=== PATIENT | male | born 1945 | race Hispanic/Latino ===

== ENCOUNTER 2018-07-12 13:41 | Emergency (ER) | payer MEDICARE ==
[2018-07-12] MEDS ORDERED: ONDANSETRON HCL 4 MG/2 ML VIAL ONE (14:46)
[2018-07-12] MEDS ORDERED: MORPHINE SULFATE 5 MG/ML VIAL ONE (14:47)
[2018-07-12 15:52] LABS: BASOPHILS % (AUTO) 0.8 % (0.0-5.0); EOSINOPHILS % (AUTO) 1.2 % (0.0-8.0); HEMATOCRIT 40.7 % (42-54); LYMPHOCYTES % (AUTO) 19.8 % (21.0-51.0); MEAN CORPUSCULAR HEMOGLOBIN 31.3 pg (27.0-33.0); MEAN CORPUSCULAR HGB CONC 34.4 g/dL (32.0-36.0); MONOCYTES % (AUTO) 6.6 % (3.0-13.0); NEUTROPHILS % (AUTO) 71.6 % (40.0-77.0); PLATELET COUNT (AUTO) 247 K/uL (130-400); RED BLOOD CELL COUNT(AUTO) 4.47 MIL/uL (4.50-6.20); RED CELL DISTRIBUTION WIDTH 12.9 % (11.0-15.5); WHITE BLOOD COUNT (AUTO) 5.9 K/uL (4.8-10.8)
[2018-07-12 16:07] LABS: CREATININE 1.1 mg/dL (0.5-1.5); INR 0.96 (0.85-1.15); PARTIAL THROMBOPLASTIN TIME 30.4 SEC (26.3-35.5); POTASSIUM 4.2 mmol/L (3.5-5.1); PROTHROMBIN TIME 10.1 SEC (9.6-11.6)
[2018-07-12 16:20] LABS: ALBUMIN 4.1 g/dL (3.5-5.0); BILIRUBIN,TOTAL 1.1 mg/dL (0.2-1.0); TOTAL PROTEIN, SERUM 7.5 g/dL (6.0-8.3)
== END 2018-07-12 17:00 | disposition home or self-care (01) ==
LOC: EDH 13:41
DX: S82.841A Displaced bimalleolar fracture of right lower leg, initial encounter for closed fracture (principal); Z88.0 Allergy status to penicillin; W18.39XA Other fall on same level, initial encounter; Y93.01 Activity, walking, marching and hiking; Y92.098 Other place in other non-institutional residence as the place of occurrence of the external cause; Y99.8 Other external cause status
CPT/HCPCS: 36415; 73600; 73610; 80053; 82550; 84484; 85025; 85610; 85730; 93005; 96374; 96375; 99284; J2270; J2405

== ENCOUNTER 2018-07-21 08:37 | Observation (INO) | payer MEDICARE ==
[2018-07-21] VITALS (21 sets, daily range): BP systolic 102–136; BP diastolic 57–92
[~2018-07-21] VITALS: Ht 172.7 cm; Wt 83.0 kg
[2018-07-21 09:12] LABS: EOSINOPHILS % (AUTO) 3.5 % (0.0-8.0); HEMATOCRIT 37.9 % (42-54); LYMPHOCYTES % (AUTO) 27.6 % (21.0-51.0); MEAN CORPUSCULAR HEMOGLOBIN 32.1 pg (27.0-33.0); MEAN CORPUSCULAR VOLUME 91.8 fL (79-99); MONOCYTES % (AUTO) 6.2 % (3.0-13.0); NEUTROPHILS % (AUTO) 61.7 % (40.0-77.0); PLATELET COUNT (AUTO) 265 K/uL (130-400); RED BLOOD CELL COUNT(AUTO) 4.13 MIL/uL (4.50-6.20); RED CELL DISTRIBUTION WIDTH 12.9 % (11.0-15.5); WHITE BLOOD COUNT (AUTO) 3.6 K/uL (4.8-10.8)
[2018-07-21 09:17] LABS: POTASSIUM 4.1 mmol/L (3.5-5.1)
[2018-07-21] MEDS ORDERED: LACTATED RINGERS 1000ML 1,000 ML IV ONE (09:59)
[2018-07-21] MEDS ORDERED: CLINDAMYCIN 900 MG/D5% WATER 50 ML IV ONE (09:59)
[2018-07-21] MEDS ORDERED: HYDROMORPHONE 1 MG/1 ML AMP ONE (11:17)
[2018-07-21] MEDS ORDERED: MAGNESIUM SULFATE 1 GM/2 ML VIAL ONE (11:19)
[2018-07-21] MEDS ORDERED: ONDANSETRON HCL 4 MG/2 ML VIAL ONE (11:51)
[2018-07-21] MEDS ORDERED: LIDOCAINE PF 2% 5ML ABBOJECT ONE (11:51)
[2018-07-21] MEDS ORDERED: PROPOFOL 10 MG/ML 20ML VIAL IV ONE (11:51)
[2018-07-21] MEDS ORDERED: FENTANYL CITRATE PF 50 MCG/1 ML 2ML VIAL ONE (11:52)
[2018-07-21] MEDS ORDERED: CLINDAMYCIN PHOSPHATE 150 MG/ML 6ML VIAL ONE (12:23)
[2018-07-21] MEDS ORDERED: EPHEDRINE SULFATE 50 MG/ML AMPULE ONE (13:50)
[2018-07-21] MEDS ORDERED: HYDROCODONE/ACETAMINOPHEN 5/325 MG TAB PO PRN (14:45)
[2018-07-21] MEDS ORDERED: CALCIUM CARBONATE 500 MG TABLET PO PRN (14:45)
[2018-07-21] MEDS ORDERED: DIPHENHYDRAMINE HCL 25 MG CAPSULE PO PRN (14:45)
[2018-07-21] MEDS ORDERED: LIDOCAINE HCL-MPF 1% 2ML VIAL IVP PRN (14:45)
[2018-07-21] MEDS ORDERED: POTASSIUM CHLORIDE 20MEQ/100ML 100 ML IV PRN (14:45)
[2018-07-21] MEDS ORDERED: PROMETHAZINE HCL 25 MG/ML 1ML AMPULE IM PRN (14:45)
[2018-07-21] MEDS ORDERED: POTASSIUM CHLORIDE 10% ELIXIR 20 MEQ/15 ML UDCUP PO PRN (14:45)
[2018-07-21] MEDS ORDERED: POTASSIUM CHLORIDE 20 MEQ ERTAB PO PRN (14:45)
[2018-07-21] MEDS ORDERED: DiphenhydrAMINE HCL 50 MG/ML VIAL IVP PRN (14:45)
[2018-07-21] MEDS ORDERED: TEMAZEPAM 15 MG CAPSULE PO PRN (14:45)
[2018-07-21] MEDS ORDERED: KETOROLAC TROMETHAMINE 15MG/ML IV PRN (14:45)
--- NOTE | 2018-07-21 16:04 | NUR ---
POST SURGERY RECEIVED FROM PACU VIA HOSPITAL BED IN STABLE CONDITION. HE IS AWAKE, ALERT AND ORIENTED X3. RIGHT LEG IS IN A POSTERIOR SPLINT, DRESSING IS DRY AND INTACT. HE HAS BEEN ORIENTED TO ROOM AND USE OF CALL LIGHT. BED IS IN LOWEST POSITION AND LOCKED. IV IS PATENT INFUSING FLUIDS WITH NO REDNESS OR SWELLING NOTED TO SITE. PATIENT IS DUE TO VOID. POST OP VITAL SIGNS HAVE BEEN INITIATED. WILL CONTINUE TO MONITOR.
[2018-07-21] MEDS: ENOXAPARIN SODIUM 40 MG/0.4 ML SYRINGE SQ SCH (20:55)
[2018-07-21] MEDS: CLINDAMYCIN 900 MG/D5% WATER 50 ML IVPB SCH (20:55)
[2018-07-21] MEDS: FAMOTIDINE 20MG TAB 20 MG TAB PO SCH (20:55)
[2018-07-21] MEDS: SODIUM CHLORIDE 0.9% 1000ML 1,000 ML IV SCH (20:56)
[2018-07-22] MEDS: SODIUM CHLORIDE 0.9% 1000ML 1,000 ML IV SCH ×2 (00:45→10:45)
[2018-07-22 03:07] VITALS: BP 126/62
[2018-07-22] MEDS: HYDROCODONE/ACETAMINOPHEN 5/325 MG TAB PO PRN ×3 (03:14→16:10)
[2018-07-22] MEDS: CLINDAMYCIN 900 MG/D5% WATER 50 ML IVPB SCH (03:57)
[2018-07-22 04:32] LABS: HEMATOCRIT 30.4 % (42-54); MEAN CORPUSCULAR HEMOGLOBIN 31.7 pg (27.0-33.0); MEAN CORPUSCULAR HGB CONC 34.7 g/dL (32.0-36.0); MEAN CORPUSCULAR VOLUME 91.3 fL (79-99); PLATELET COUNT (AUTO) 225 K/uL (130-400); POTASSIUM 3.6 mmol/L (3.5-5.1); RED BLOOD CELL COUNT(AUTO) 3.33 MIL/uL (4.50-6.20); RED CELL DISTRIBUTION WIDTH 12.9 % (11.0-15.5); WHITE BLOOD COUNT (AUTO) 5.1 K/uL (4.8-10.8)
[2018-07-22 07:45] VITALS: BP 109/58
[2018-07-22] MEDS: FAMOTIDINE 20MG TAB 20 MG TAB PO SCH (08:25)
[2018-07-22] MEDS: ENOXAPARIN SODIUM 40 MG/0.4 ML SYRINGE SQ SCH (08:26)
[2018-07-22] MEDS ORDERED: POLYETHYLENE GLYCOL 3350 17 GM POWD.PACK PO SCH (09:00)
[2018-07-22] MEDS ORDERED: TAMSULOSIN HCL 0.4 MG CAP.ER.24H PO SCH (09:00)
[2018-07-22] MEDS ORDERED: HYDR-4457 PO (10:56)
[2018-07-22] MEDS ORDERED: ASPI-1012 PO (10:56)
[2018-07-22 11:19] VITALS: BP 121/63
--- NOTE | 2018-07-22 11:23 | NUR ---
Dr. Alcantar in room, discharge orders given: home with home health. Written RX for norco and asa taken to pt's pharmacy by MD for delivery planned for Tuesday.
[2018-07-22] MEDS ORDERED: PSYLLIUM SEED 1 EACH PACKET PO SCH (12:00)
--- NOTE | 2018-07-22 13:30 | NUR ---
Discharge report called to [facility] Nurse Pantera Maya RN.
--- NOTE | 2018-07-22 14:15 | NUR ---
cm note met with patient and states resides at home alone, independent prior to admission. [facility] dc plan is back to home setting, spoke to dr watkins, orders for Home health call made to [facility] and they have accepted pt. per Bobby naik rn immigration associate [phone]. and also call made to [facility] for walker, referral made and spoke to dave wilde, and informed would loan pt a walker until his gets approved, then request to exchange out walker and return to hospital. Mr wilde in agreement. updated primary nurse dc. Addendum: 07/22/18 at 1418 by IVY SMITH CM Amended: Links added.
--- NOTE | 2018-07-22 17:45 | NUR ---
Discharge instructions completed in the room with pt at 1630. Emphasis on dx, sx, s/s to monitor for, and when to seek emergency care vs dial 911. Post op teaching regarding Dr. Alcantar' orders for NWB status on RLE, up with walker as instructed and as tolerated, keep splint clean, dry, intact, keep elevated when seated or in bed. PT is to call on next business day to schedule an appointment with Dr. Alcantar' office, to be seen on 07/31/18. All questions addressed. As previously noted, pt's rx for norco and asa were already taken to pharmacy by Dr. Alcantar and will be delivered on Tuesday; pt and MD discussed this and agreed it is the best course of action at present as he in unable to pick it up on his own. PIV removed, tip intact. Dressed with sterile 2x2 and band aid after hemostasis. Pt given hospital walker on loan until his personal one is delivered by [employer]. Pt wheeled to front lobby by [facility] staff at present for discharge home via taxi as arranged by pt. Pt in stable condition at time of discharge.
[2018-07-23] MEDS ORDERED: BISACODYL 5 MG TABLET.DR PO PRN (14:45)
[2018-07-24] MEDS ORDERED: BISACODYL 10 MG SUPP.RECT RC PRN (14:45)
== END 2018-07-22 17:44 | disposition home health service (06) ==
LOC: DAH 08:37 → DAHIP 08:38 → 4AH 15:59
PROVIDERS: ADMIT Orthopaedic Surgery; ATTEND Orthopaedic Surgery
DX: S82.841A Displaced bimalleolar fracture of right lower leg, initial encounter for closed fracture (principal); X50.0XXA Overexertion from strenuous movement or load, initial encounter; Y93.89 Activity, other specified; Y92.89 Other specified places as the place of occurrence of the external cause; Y99.8 Other external cause status; Z79.899 Other long term (current) drug therapy; Z82.49 Family history of ischemic heart disease and other diseases of the circulatory system; Z88.0 Allergy status to penicillin
CPT/HCPCS: 27814; 36415 ×2; 73610; 80048 ×2; 85025; 85027; 96365; 96366; 96372 ×2; 97039 ×3; 97116 ×2; 97161; A4649 ×4; A4930 ×2; A6223; C1713 ×6; C1776; G0378 ×33; G8978; G8979; G8980; G8981; G8982; G8983; J1170; J1650 ×2; J2001; J2405; J2704; J3010; J3475; J3490 ×4; J7120 ×2; Q4051